=== PATIENT | male | born 1990 | race Caucasian/White ===

== ENCOUNTER 2019-04-02 17:13 | Emergency (ER) | payer MEDICAID ==
[~2019-04-02] VITALS: Ht 167.6 cm; Wt 94.8 kg
[2019-04-02 17:17] VITALS: Ht 167.6 cm; Wt 94.8 kg
[2019-04-02 17:43] VITALS: BP 163/99
== END 2019-04-02 17:43 | disposition home or self-care (01) ==
LOC: ED 17:13
DX: J11.1 Influenza due to unidentified influenza virus with other respiratory manifestations (principal); I10 Essential (primary) hypertension; Z98.890 Other specified postprocedural states